=== PATIENT | female | born 1990 | race Caucasian/White ===

== ENCOUNTER 2016-11-29 13:32 | Emergency (ER) | payer OTHER ==
[~2016-11-29 13:32] MED LIST: ALBUTEROL17 GM INH; CIPRO PO; KEFLEX; METROGEL60 GM TOP; NAPROXEN; NO MEDICATIONS; PRENATAL1 TA1 PO; PYRIDIUM100 MG; VICODIN 5/1 TAB 5/50 PO
== END 2016-11-29 13:49 | disposition home or self-care (01) ==
LOC: SED 13:32
DX: H00.011 Hordeolum externum right upper eyelid (principal); G40.909 Epilepsy, unspecified, not intractable, without status epilepticus
CPT/HCPCS: 99283